=== PATIENT | female | born 2000 | race Asian ===

== ENCOUNTER 2023-06-08 22:58 | Emergency (ER) | payer BC ==
[2023-06-08 23:20] VITALS: BP 138/81; PULSE 104; RESP 20; TEMP 99; BMI 39.1
== END 2023-06-08 23:48 | disposition home or self-care (01) ==
LOC: FER 22:58
DX: R06.2 Wheezing (principal); J45.909 Unspecified asthma, uncomplicated
CPT/HCPCS: 99283-25

== ENCOUNTER 2023-06-10 18:36 | Emergency (ER) | payer BC ==
[2023-06-10 19:03] VITALS: BP 132/77; PULSE 87; RESP 18; TEMP 99.5; BMI 39.1
== END 2023-06-10 20:37 | disposition home or self-care (01) ==
LOC: FER 18:36
DX: S09.90XA Unspecified injury of head, initial encounter (principal); R11.0 Nausea; V49.40XA Driver injured in collision with unspecified motor vehicles in traffic accident, initial encounter; Y92.410 Unspecified street and highway as the place of occurrence of the external cause
CPT/HCPCS: 70450-TC; 81025; 99284-25